=== PATIENT | female | born 1995 | race Caucasian/White ===

== ENCOUNTER 2021-02-28 10:10 | Observation (INO) ==
[2021-02-28 10:32] VITALS: BP 145/83
[2021-02-28] MEDS ORDERED: PENICILLIN G POTASSIUM 5 MILLIONUNT in DEXTROSE 5 % IN WATER 100 ML IV ONE ×2 (10:50)
[2021-02-28] MEDS ORDERED: DEXTROSE 5%-LACTATED RINGERS 1,000 ML IV PRN (10:50)
[2021-02-28 11:11] LABS: Hemoglobin 11.7 gm/dL (12.5-16.0); Mean Cell Volume 87.3 fl (78-100); Mean Corpuscular Hemoglobin 29.2 pg (27-31); Mean Corpuscular Hgb Conc 33.4 g/dl (32-36); Mean Platelet Volume 10.9 fl (8-12.5); Neutrophil # 8.7 K/mm3 (1.3-6.0); Neutrophil % 78.9 % (42-75.0); Platelet Count 202 K/mm3 (150-450); Red Blood Count 4.01 M/mm3 (4.2-5.4); Red Cell Distribution Width 13.3 % (11.5-14.0); White Blood Count 11.1 K/mm3 (4.0-10.5)
[2021-02-28 11:28] LABS: Albumin * 2.4 gm/dl (3.4-5.0); Anion Gap 14.7 mmol/L (6.8-13.8); BUN/Creatinine Ratio 15.5 (9.0-21.6); Bilirubin, Total 0.1 mg/dL (0.0-1.1); Ca. Corrected For Albumin 10.2 mg/dL (8.4-10.2); Calcium * 9.2 mg/dL (7.9-10.9); Carbon Dioxide 22.2 mmol/L (24-32.6); Potassium 3.9 mmol/L (3.4-4.6); Total Protein 6.4 gm/dL (6.2-8.2)
[2021-02-28 11:43] LABS: Random Urine Total Protein 50.5 mg/dL (0-12)
[2021-02-28 12:37] LABS: Random Urine Total Protein Less than 6.0 mg/dL (0-12)
--- NOTE | 2021-02-28 12:37 | HP ---
Chief Complaint - Chief Complaint Date of Service: 02/28/21 Time of Service: 12:09 Chief Complaint: leaking of fluid History of Present Illness: 25 yo at 35w5d presents to L&D complaining of leaking of fluid since around 0445 this am. She also complains of mild irregular contractions since LOF began. She denies N/V/F/C, Covid s/s, vaginal bleeding or d/c prior to LOF, recent coitus, trauma, or decreased FM. This complicated by frequent headaches and now PPROM and elevated BPs (stress vs GHTN vs Preeclampsia) Rh negative Rubella immune GBS pending Medical History (Last Reviewed 02/28/21 @ 12:15 by Wilmer Brennan DO) Anemia (Acute) Onset Date: 01/2021 w/ Influenza vaccine not given Onset Date: ~08/2020 Already received for season. XENIA Irizarry Mumps Onset Date: 2004 Migraine without aura Onset Date: Unknown controlled with magnesium Acne Onset Date: ~06/04/13 Peroneal tendinitis Onset Date: Unknown Left foot Varicella without mention of complication Onset Date: Unknown Surgical History: Surgical History (Last Reviewed 02/28/21 @ 12:15 by Wilmer Brennan DO) [place] teeth removed Onset Date: ~09/2017 Family History: Family History (Last Reviewed 02/28/21 @ 12:15 by Wilmer Brennan DO) Grandfather Brain aneurysm History of open heart surgery Alcohol abuse Mother CHF (congestive heart failure) during Father Alive and well Grandfather COPD (chronic obstructive pulmonary disease) Grandmother Diabetes Social History: (Last Reviewed 02/28/21 @ 12:15 by Wilmer Brennan DO) Social History: adopted: No Marital status: household members: spouse number of children: 0 current occupational status: employed current occupation: [employer] current occupational exposures/hazards: No Highest level of school completed/degree received: Associate degree: academi Sexually Active: Yes Service: No Tobacco: Smoking Status: Never smoker Alcohol: alcohol intake: current alcohol intake frequency: holiday/special occasion details: none since +UPT Substance Use: substance use type: does not use Dietary Habits: caffeine: Yes caffeine comment: 1 daily Type: coffee Exercise: Physical activity type: running frequency: 1-2 times per week Review Of Systems (GEN) - Review of Systems Generalized/Overall Review: Present: No Symptoms Reported EENTM: Present: No Symptoms Reported Respiratory: Present: No Symptoms Reported Cardiac: Present: No Symptoms Reported Abdominal: Present: Other - mild irregular contractions Genitourinary: Present: Other - LOF - clear, started around 0445. Musculoskeletal: Present: No Symptoms Reported Neurological: Present: No Symptoms Reported Skin: Present: No Symptoms Reported Endocrine: Present: No Symptoms Reported Allergies/Adverse Reactions: Allergies Allergy/AdvReac Type Severity Reaction Status Date / Time No Known Allergies Allergy Verified 02/26/21 14:49 Home Medications: HOME MEDICATIONS magnesium oxide,aspartate,citr 250 mg PO DAILY PRN cap 08/21/20 [Last Taken Unknown] prenat.vits,karen,qcr-encp-gdeov 1 tab PO DAILY 08/21/20 [Last Taken Unknown] ferrous sulfate 325 mg (65 mg iron) tablet,delayed release 325 mg PO DAILY #30 tab 01/12/21 [Last Taken Unknown] Exam - Exam Vital Signs: Vital Signs - Last Taken Temp 36.8 C 02/28/21 10:29 Pulse 96 02/28/21 10:29 Resp 18 02/28/21 10:29 BP 145/83 H 02/28/21 10:29 Pulse Ox 98 02/28/21 10:29 Constitutional: Present: Alert, Oriented x3, Cooperative, No distress ENT Exam: Present: hearing grossly normal Neck: Present: non-tender. Absent: thyromegaly Breasts: Present: Exam deferred Respiratory: Present: lungs clear, no respiratory distress Cardiovascular/Chest: Present: normal peripheral pulses, regular rate, rhythm Abdomen: Present: soft, nontender, no rebound tenderness, other - gravid /Rectal: Present: Other - Cervix - 1/80/-1, gross ROM - clear Extremity: Present: no calf tenderness, lower extremity edema - 1+, other - DTR 2/4, no clonus Skin Exam: Present: normal color, warm/dry, no cyanosis Lymphatic: Present: no adenopathy Neurologic: Present: alert, normal mood/affect, oriented x 3 Appearance: Present: appropriate appearance, appropriate insight Eye contact: Present: cooperative, good eye contact Thoughts: Present: normal thought pattern, normal mood /affect Diagnostic Studies: Abnormal Lab Results 02/28/21 02/28/21 02/28/21 Range/Units 10:29 10:30 11:05 WBC 11.1 H (4.0-10.5) K/mm3 RBC 4.01 L (4.2-5.4) M/mm3 Hgb 11.7 L (12.5-16.0) gm/dL Hct 35.0 L (37.0-47.0) % Immature Gran # (Auto) 0.04 H (0.000-0.0310) K/mm3 Neutrophils % 78.9 H (42-75.0) % Lymphocytes % 13.7 L (20-51) % Neutrophils # 8.7 H (1.3-6.0) K/mm3 Carbon Dioxide (24-32.6) mmol/L Anion Gap (6.8-13.8) mmol/L Est GFR (Non-Af Amer) (60-130) mL/min Alkaline Phosphatase (50-170) U/L Albumin (3.4-5.0) gm/dl Ur Random Creatinine 21.6 L (60-200) mg/dL U Random Total Protein 50.5 H (0-12) mg/dL U [place] Prot/Creat Ratio 2338 H (0-199) mg/gm Membranes Rupture Positive H (Negative) 02/28/21 Range/Units 11:05 WBC (4.0-10.5) K/mm3 RBC (4.2-5.4) M/mm3 Hgb (12.5-16.0) gm/dL Hct (37.0-47.0) % Immature Gran # (Auto) (0.000-0.0310) K/mm3 Neutrophils % (42-75.0) % Lymphocytes % (20-51) % Neutrophils # (1.3-6.0) K/mm3 Carbon Dioxide 22.2 L (24-32.6) mmol/L Anion Gap 14.7 H (6.8-13.8) mmol/L Est GFR (Non-Af Amer) 135 H (60-130) mL/min Alkaline Phosphatase 180 H (50-170) U/L Albumin 2.4 L (3.4-5.0) gm/dl Ur Random Creatinine (60-200) mg/dL U Random Total Protein (0-12) mg/dL U [place] Prot/Creat Ratio (0-199) mg/gm Membranes Rupture (Negative) Laboratory Results WBC 11.1 K/mm3 (4.0-10.5) H 02/28/21 11:05 RBC 4.01 M/mm3 (4.2-5.4) L 02/28/21 11:05 Hgb 11.7 gm/dL (12.5-16.0) L 02/28/21 11:05 Hct 35.0 % (37.0-47.0) L 02/28/21 11:05 MCV 87.3 fl (78-100) 02/28/21 11:05 MCH 29.2 pg (27-31) 02/28/21 11:05 MCHC 33.4 g/dl (32-36) 02/28/21 11:05 RDW 13.3 % (11.5-14.0) 02/28/21 11:05 Plt Count 202 K/mm3 (150-450) 02/28/21 11:05 MPV 10.9 fl (8-12.5) 02/28/21 11:05 Immature Gran % (Auto) 0.40 % (0.001-0.429) 02/28/21 11:05 Immature Gran # (Auto) 0.04 K/mm3 (0.000-0.0310) H 02/28/21 11:05 Neutrophils % 78.9 % (42-75.0) H 02/28/21 11:05 Lymphocytes % 13.7 % (20-51) L 02/28/21 11:05 Monocytes % 6.2 % (0.0-9) 02/28/21 11:05 Eosinophils % 0.6 % (0.0-3.0) 02/28/21 11:05 Basophils % 0.2 % (0.0-1.0) 02/28/21 11:05 Nucleated RBC % 0.0 k/mm3 (0-1) 02/28/21 11:05 Neutrophils # 8.7 K/mm3 (1.3-6.0) H 02/28/21 11:05 Lymphocytes # 1.51 k/mm3 (1.5-3.5) 02/28/21 11:05 Monocytes # 0.7 k/mm3 (0.0-1.0) 02/28/21 11:05 Eosinophils # 0.1 k/mm3 (0.0-0.7) 02/28/21 11:05 Absolute Basophils 0.0 k/mm3 (0.0-0.1) 02/28/21 11:05 Sodium 139 mmol/L (132-142) 02/28/21 11:05 Plasma Sodium 139 mmol/L (130-142) 02/28/21 11:05 Potassium 3.9 mmol/L (3.4-4.6) 02/28/21 11:05 Chloride 106 mmol/L (97-106) 02/28/21 11:05 Carbon Dioxide 22.2 mmol/L (24-32.6) L 02/28/21 11:05 Anion Gap 14.7 mmol/L (6.8-13.8) H 02/28/21 11:05 BUN 9 mg/dL (3-23) 02/28/21 11:05 Creatinine 0.58 mg/dL (0.4-1.4) 02/28/21 11:05 Est GFR (Non-Af Amer) 135 mL/min (60-130) H 02/28/21 11:05 BUN/Creatinine Ratio 15.5 (9.0-21.6) 02/28/21 11:05 Random Glucose 94 mg/dL (70-110) 02/28/21 11:05 Calcium 9.2 mg/dL (7.9-10.9) 02/28/21 11:05 Calcium Adj for Albumin 10.2 mg/dL (8.4-10.2) 02/28/21 11:05 Total Bilirubin 0.1 mg/dL (0.0-1.1) 02/28/21 11:05 AST 30 U/L (0-48) 02/28/21 11:05 ALT 28 U/L (19-67) 02/28/21 11:05 Alkaline Phosphatase 180 U/L (50-170) H 02/28/21 11:05 Total Protein 6.4 gm/dL (6.2-8.2) 02/28/21 11:05 Albumin 2.4 gm/dl (3.4-5.0) L 02/28/21 11:05 Ur Random Creatinine 21.6 mg/dL (60-200) L 02/28/21 10:30 U Random Total Protein 50.5 mg/dL (0-12) H 02/28/21 10:30 U [place] Prot/Creat Ratio 2338 mg/gm (0-199) H 02/28/21 10:30 Membranes Rupture Positive (Negative) H 02/28/21 10:29 Urine was a voided specimen contaminated with amniotic fluid. St cath specimen for repeat Pr/Cr ratio was 187. Bedside ultrasound reveals fetus in cephalic presentation, low BABITA consistent with PPROM. Assessment/Plan - Assessment/Plan (1) premature rupture of membranes in third trimester Assessment: Admit for PPROM. Start on IV PCN per GBS protocol. R/b/a of transfer to [facility] discussed with patient. Transfer of care accepted and discussed with Dr. Víctor Montoya. Problem: Acute Qualifiers: PROM onset of labor timing: unspecified duration between rupture of membranes and onset of labor Qualified Code(s): O42.913 - premature rupture of membranes, unspecified as to length of time between rupture and onset of labor, third trimester (2) Elevated blood pressure complicating in third trimester, antepartum Problem: Acute (3) Frequent headaches Problem: Chronic Non Stress Test - Status NST: 02/28/21 Weeks Gestation: 35w5d Reason for NST: gestational hypertension, other - PPROM, threatened labor Monitor Mode: External Acceleration: Present Decelerations: None Variability: Moderate 6-25 bpm Baseline Heart Rate: 140 Activity: reactive Reactive: 15 by 15 - Assessment NST Assessment: gestational hypertension, other - PPROM, threatened labor - Plan NST Plan: Other - Transfer to [facility]
--- NOTE | 2021-02-28 13:20 | DS ---
OB Discharge Summary (1) premature rupture of membranes in third trimester Status: Acute Qualifiers: PROM onset of labor timing: unspecified duration between rupture of membranes and onset of labor Qualified Code(s): O42.913 - premature rupture of membranes, unspecified as to length of time between rupture and onset of labor, third trimester (2) Elevated blood pressure complicating in third trimester, antepartum Status: Acute (3) Frequent headaches Status: Chronic :: 1 Para:: 0 Gestational weeks:: 35 Gestational days:: 5 Intrapartum Procedures: Undelivered Discharge Diagnosis: Gestational Hypertension, Premature Labor, PROM, Rubella Immune - Discharge Information Date of Discharge: 02/28/21 Hospital Course: 25-year-old 1 para 0 at 35 weeks 5 days presents to labor and delivery with spontaneous rupture of membranes. Patient was evaluated and started on IV penicillin for GBS prophylaxis due to unknown culture results. Patient was transferred to [facility] for management of labor. Discharge Location: [facility] Disposition: Short Term Hospital Inpatient Condition: Stable Activity on Discharge:: Pelvic Rest Discharge Diet: Clear Liquids Complete Home Medications List: Complete Home Medication List: magnesium oxide,aspartate,citr 250 mg PO DAILY PRN cap 08/21/20 prenat.vits,karen,tix-piow-qodes 1 tab PO DAILY 08/21/20 ferrous sulfate 325 mg (65 mg iron) tablet,delayed release 325 mg PO DAILY #30 tab 01/12/21 - Plan Discharge to:: Other - [facility] Follow up in office in:: Other - 3-4 wks PP
[2021-02-28] MEDS ORDERED: PENICILLIN G POTASSIUM 2.5 MILLIONUNT in DEXTROSE 5 % IN WATER 100 ML IV SCH ×2 (15:00)
== END 2021-02-28 13:05 | disposition short-term general hospital (02) ==
LOC: OB 10:10 → OBCLINIC 10:10
PROVIDERS: ADMIT Obstetrics & Gynecology; ATTEND Obstetrics & Gynecology
DX: Z3A.35 35 weeks gestation of pregnancy; O16.3 Unspecified maternal hypertension, third trimester; O42.913 Preterm premature rupture of membranes, unspecified as to length of time between rupture and onset of labor, third trimester

== ENCOUNTER 2021-03-06 17:53 | Inpatient (IN) ==
[2021-03-06 18:14] LABS: Hematocrit 36.9 % (37.0-47.0); Hemoglobin 12.2 gm/dL (12.5-16.0); Mean Cell Volume 87.6 fl (78-100); Mean Corpuscular Hgb Conc 33.1 g/dl (32-36); Mean Platelet Volume 10.5 fl (8-12.5); Neutrophil # 4.7 K/mm3 (1.3-6.0); Neutrophil % 60.6 % (42-75.0); Platelet Count 214 K/mm3 (150-450); Red Blood Count 4.21 M/mm3 (4.2-5.4); Red Cell Distribution Width 13.2 % (11.5-14.0); White Blood Count 7.7 K/mm3 (4.0-10.5)
[2021-03-06 18:26] LABS: Albumin * 2.6 gm/dl (3.4-5.0); Anion Gap 12.3 mmol/L (6.8-13.8); BUN/Creatinine Ratio 21.2 (9.0-21.6); Bilirubin, Total 0.1 mg/dL (0.0-1.1); Ca. Corrected For Albumin 9.7 mg/dL (8.4-10.2); Calcium * 8.9 mg/dL (7.9-10.9); Carbon Dioxide 26.8 mmol/L (24-32.6); Potassium 4.1 mmol/L (3.4-4.6); Total Protein 6.5 gm/dL (6.2-8.2)
[2021-03-06] MEDS ORDERED: ACETAMINOPHEN 325 MG TABLET PO ONE (18:41)
--- NOTE | 2021-03-06 18:45 | ERNOTE ---
Medical Problem HPI - General Chief Complaint: Genitourinary Problem Time Seen by Provider: 03/06/21 18:30 Source: patient Exam Limitations: no limitations - Immun/Allergies/Home Medications Immunizations: IMMUNIZATION HX Immunizations Up to Date Yes History of Influenza Vaccine Yes Hx Pneumococcal Vaccination No Allergies/Adverse Reactions: Allergies No Known Allergies Allergy (Verified 03/06/21 18:13) Home Medications: HOME MEDICATIONS magnesium oxide,aspartate,citr 250 mg PO DAILY PRN cap 08/21/20 [Last Taken Unknown] prenat.vits,karen,rmf-rlnx-lapwp 1 tab PO DAILY 08/21/20 [Last Taken Unknown] ferrous sulfate 325 mg (65 mg iron) tablet,delayed release 325 mg PO DAILY #30 tab 01/12/21 [Last Taken Unknown] - History of Present History Narrative: Patient is coming to the ER for concern about preeclampsia. She had a spontaneous vaginal delivery on March 01 at 36 6/7week. She states that initially her blood pressure postdelivery were somewhat elevated but she was d ischarged home with satisfactory blood pressures 3 days ago. She states that she has had increased swelling in the hands and legs since her delivery worse the last couple of days. Her child is currently admitted for hyperbilirubinemia and as she was not feeling well she had the nurses take her blood pressure and it was found to be 160/100 so she was sent to the ER for evaluation of preeclampsia. She has a mild headache which she rates at 4/10. She has a mild backache, initially thought it was due to sleeping on the hospital cot, today she has some pressure-like feeling in the chest as well. It hurts to take a deep breath Review of Systems - Review of Systems Constitutional: Absent: recent illness, fever ENT: Present: no symptoms reported Respiratory: Absent: shortness of breath Cardiology: Present: chest pain Gastrointestinal/Abdominal: Absent: abdominal pain Musculoskeletal: Present: back pain Neurological: Present: See HPI, headache Medical History (Last Reviewed 03/06/21 @ 18:43 by Kami Larson MD) Anemia (Acute) Onset Date: 01/2021 w/ Influenza vaccine not given Onset Date: ~08/2020 Already received for season. XENIA Irizarry Mumps Onset Date: 2004 Migraine without aura Onset Date: Unknown controlled with magnesium Acne Onset Date: ~06/04/13 Peroneal tendinitis Onset Date: Unknown Left foot Varicella without mention of complication Onset Date: Unknown Surgical History: Surgical History (Last Reviewed 03/06/21 @ 18:43 by Kami Larson MD) [place] teeth removed Onset Date: ~09/2017 Family History: Family History (Last Reviewed 03/06/21 @ 18:14 by Court Flores, REGGIE) Grandfather Brain aneurysm History of open heart surgery Alcohol abuse Mother CHF (congestive heart failure) during Father Alive and well Grandfather COPD (chronic obstructive pulmonary disease) Grandmother Diabetes Social History: (Last Reviewed 03/06/21 @ 18:14 by Court Flores, REGGIE) Social History: adopted: No Marital status: household members: spouse number of children: 0 current occupational status: employed current occupation: [employer] current occupational exposures/hazards: No Highest level of school completed/degree received: Associate degree: danny Sexually Active: Yes Service: No Tobacco: Smoking Status: Never smoker Alcohol: alcohol intake: current alcohol intake frequency: holiday/special occasion details: none since +UPT Substance Use: substance use type: does not use Dietary Habits: caffeine: Yes caffeine comment: 1 daily Type: coffee Exercise: Physical activity type: running frequency: 1-2 times per week Physical Exam - Physical Exam General Appearance: Present: wd/wn, alert, no apparent distress, obese Head Exam: Present: normal inspection Eye Exam: Normal inspection: bilateral Respiratory: Present: no respiratory distress, normal breath sounds, no accessory muscle use, chest nontender, lungs clear Cardiovascular/Chest: Present: regular rate, rhythm, no murmur Extremity Exam: Present: pedal edema Neurological Exam: Present: alert, oriented, normal mood/affect Skin Exam: Present: normal color, warm/dry Progress - Results and Orders Patient's Lab Results:: I have reviewed the patient's lab results. - Vital Signs Patient's Vital Signs:: I have reviewed the patient's vital signs. Vital Signs: Vital Signs 03/06/21 17:59 Temperature 36.5 C Pulse Rate 58 L Respiratory Rate 15 Blood Pressure 178/101 H O2 Sat by Pulse Oximetry 99 - EKG EKG #1 EKG: NSR - sinusbradycardia, no ST T wave changes EKG read: Interp. 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
[2021-03-06 18:51] LABS: Urine Bilirubin Negative (NEGATIVE); Urine Blood Negative /ul (NEGATIVE); Urine Ketone Negative (NEGATIVE); Urine Nitrite Negative (NEGATIVE); Urine Protein Negative (NEGATIVE); Urine Specific Gravity <=1.005 SP.GR. (1.005-1.010); Urine Urobilinogen Normal (NORMAL)
[2021-03-06 19:00] LABS: Random Urine Total Protein Less than 6.0 mg/dL (0-12)
[2021-03-06 19:06] LABS: Urine Appearance Clear (CLEAR); Urine Color Pale Yellow; Urine RBC TRACE /hpf (0-5); Urine WBC TRACE /hpf (0-5)
[2021-03-06] MEDS ORDERED: diphenhydrAMINE HCL 50 MG/ML VIAL IV ONE (19:06)
[2021-03-06] MEDS ORDERED: METOCLOPRAMIDE HCL 5 MG/ML VIAL IV ONE (19:06)
[2021-03-06 19:07] LABS: Urine Bacteria TRACE
[2021-03-06] MEDS ORDERED: LABETALOL HCL 5 MG/ML VIAL IV ONE (20:13)
[2021-03-06] MEDS ORDERED: MAGNESIUM SULFATE IN WATER 50 ML, MAGNESIUM SULFATE IN WATER 50 ML IV ONE ×2 (21:29)
[2021-03-06] MEDS ORDERED: CALCIUM GLUCONATE 4.65 MEQ/10 ML VIAL IV PRN (21:29)
[2021-03-06] MEDS ORDERED: MAGNESIUM SULFATE IN WATER 1,000 ML IV SCH (21:30)
[2021-03-06] MEDS ORDERED: MAGNESIUM SULFATE IN WATER IV ONE (21:54)
[2021-03-06] MEDS: DEXTROSE 5%-LACTATED RINGERS 1,000 ML IV PRN (22:46)
--- NOTE | 2021-03-06 23:23 | HP ---
Chief Complaint - Chief Complaint Date of Service: 03/06/21 Time of Service: 23:08 Chief Complaint: MARIE and not feeling good History of Present Illness: 25 yo 5 days out from of 35+wk fetus at [facility] c/o of MARIE and not feeling well. Patient had mildly elevated BPs after delivery at [facility] but no symptoms till today. In addition to MARIE, she has increased swelling, chest discomfort with deep breathing, and generalized malaise. She was evaluated in ER and found to be COVID positive and have preeclampsia with severe features. Medical History (Last Reviewed 03/06/21 @ 23:13 by Wilmer Brennan DO) Anemia (Acute) Onset Date: 01/2021 w/ Influenza vaccine not given Onset Date: ~08/2020 Already received for season. XENIA Irizarry Mumps Onset Date: 2004 Migraine without aura Onset Date: Unknown controlled with magnesium Acne Onset Date: ~06/04/13 Peroneal tendinitis Onset Date: Unknown Left foot Varicella without mention of complication Onset Date: Unknown Surgical History: Surgical History (Last Reviewed 03/06/21 @ 23:13 by Wilmer Brennan DO) [place] teeth removed Onset Date: ~09/2017 Family History: Family History (Last Reviewed 03/06/21 @ 23:13 by Wilmer Brennan DO) Grandfather Brain aneurysm History of open heart surgery Alcohol abuse Mother CHF (congestive heart failure) during Father Alive and well Grandfather COPD (chronic obstructive pulmonary disease) Grandmother Diabetes Social History: (Last Reviewed 03/06/21 @ 23:13 by Wilmer Brennan DO) Social History: adopted: No Marital status: household members: spouse number of children: 0 current occupational status: employed current occupation: [employer] current occupational exposures/hazards: No Highest level of school completed/degree received: Associate degree: academi Sexually Active: Yes Service: No Tobacco: Smoking Status: Never smoker Alcohol: alcohol intake: current alcohol intake frequency: holiday/special occasion details: none since +UPT Substance Use: substance use type: does not use Dietary Habits: caffeine: Yes caffeine comment: 1 daily Type: coffee Exercise: Physical activity type: running frequency: 1-2 times per week Review Of Systems (GEN) - Review of Systems Generalized/Overall Review: Present: Malaise EENTM: Present: No Symptoms Reported Respiratory: Present: No Symptoms Reported Cardiac: Present: Chest Pain - when up and deep breathing, non lying down Abdominal: Present: No Symptoms Reported Genitourinary: Present: No Symptoms Reported Musculoskeletal: Present: No Symptoms Reported Neurological: Present: Headache Endocrine: Present: Other - Feels hot Immunizations: IMMUNIZATION HX Immunizations Up to Date Yes History of Influenza Vaccine Yes Hx Pneumococcal Vaccination No Allergies/Adverse Reactions: Allergies Allergy/AdvReac Type Severity Reaction Status Date / Time No Known Allergies Allergy Verified 03/06/21 18:13 Home Medications: HOME MEDICATIONS magnesium oxide,aspartate,citr 250 mg PO DAILY PRN cap 08/21/20 [Last Taken Unknown] prenat.vits,karen,[id number] 1 tab PO DAILY 08/21/20 [Last Taken Unknown] ferrous sulfate 325 mg (65 mg iron) tablet,delayed release 325 mg PO DAILY #30 tab 01/12/21 [Last Taken Unknown] Exam - Exam Vital Signs: Vital Signs - Last Taken Temp 36.8 C 03/06/21 22:52 Pulse 75 03/06/21 22:52 Resp 18 03/06/21 22:52 BP 143/83 H 03/06/21 22:52 Pulse Ox 100 03/06/21 22:52 Constitutional: Present: Alert, Oriented x3, Cooperative, No distress, Other - edematous ENT Exam: Present: hearing grossly normal Breasts: Present: Exam deferred Respiratory: Present: lungs clear, no respiratory distress Cardiovascular/Chest: Present: normal peripheral pulses, regular rate, rhythm Abdomen: Present: soft, nontender, no rebound tenderness /Rectal: Present: Other - uterus enlarged, NT, firm Extremity: Present: non-tender, no calf tenderness, lower extremity edema - 1+, other - DTR 3/4, no clonus Skin Exam: Present: normal color, warm/dry, no cyanosis Neurologic: Present: alert, normal mood/affect, oriented x 3 Appearance: Present: appropriate appearance, appropriate insight Eye contact: Present: cooperative, good eye contact Thoughts: Present: normal thought pattern, normal mood /affect Diagnostic Studies: Abnormal Lab Results 03/06/21 03/06/21 03/06/21 Range/Units 18:09 18:09 18:20 Hgb 12.2 L (12.5-16.0) gm/dL Hct 36.9 L (37.0-47.0) % Monocytes % 11.5 H (0.0-9) % Albumin 2.6 L (3.4-5.0) gm/dl Urine WBC (0-5) /hpf Ur Random Creatinine 11.0 L (60-200) mg/dL U [place] Prot/Creat Ratio 545 H (0-199) mg/gm SARS-CoV-2 (PCR) (NotDetected) 03/06/21 03/06/21 Range/Units 18:20 20:17 Hgb (12.5-16.0) gm/dL Hct (37.0-47.0) % Monocytes % (0.0-9) % Albumin (3.4-5.0) gm/dl Urine WBC Trace H (0-5) /hpf Ur Random Creatinine (60-200) mg/dL U [place] Prot/Creat Ratio (0-199) mg/gm SARS-CoV-2 (PCR) Detected H (NotDetected) Laboratory Results WBC 7.7 K/mm3 (4.0-10.5) 03/06/21 18:09 RBC 4.21 M/mm3 (4.2-5.4) 03/06/21 18:09 Hgb 12.2 gm/dL (12.5-16.0) L 03/06/21 18:09 Hct 36.9 % (37.0-47.0) L 03/06/21 18:09 MCV 87.6 fl (78-100) 03/06/21 18:09 MCH 29.0 pg (27-31) 03/06/21 18:09 MCHC 33.1 g/dl (32-36) 03/06/21 18:09 RDW 13.2 % (11.5-14.0) 03/06/21 18:09 Plt Count 214 K/mm3 (150-450) 03/06/21 18:09 MPV 10.5 fl (8-12.5) 03/06/21 18:09 Immature Gran % (Auto) 0.40 % (0.001-0.429) 03/06/21 18:09 Immature Gran # (Auto) 0.03 K/mm3 (0.000-0.0310) 03/06/21 18:09 Neutrophils % 60.6 % (42-75.0) 03/06/21 18:09 Lymphocytes % 24.8 % (20-51) 03/06/21 18:09 Monocytes % 11.5 % (0.0-9) H 03/06/21 18:09 Eosinophils % 2.3 % (0.0-3.0) 03/06/21 18:09 Basophils % 0.4 % (0.0-1.0) 03/06/21 18:09 Nucleated RBC % 0.0 k/mm3 (0-1) 03/06/21 18:09 Neutrophils # 4.7 K/mm3 (1.3-6.0) 03/06/21 18:09 Lymphocytes # 1.90 k/mm3 (1.5-3.5) 03/06/21 18:09 Monocytes # 0.9 k/mm3 (0.0-1.0) 03/06/21 18:09 Eosinophils # 0.2 k/mm3 (0.0-0.7) 03/06/21 18:09 Absolute Basophils 0.0 k/mm3 (0.0-0.1) 03/06/21 18:09 Sodium 140 mmol/L (132-142) 03/06/21 18:09 Plasma Sodium 140 mmol/L (130-142) 03/06/21 18:09 Potassium 4.1 mmol/L (3.4-4.6) 03/06/21 18:09 Chloride 105 mmol/L (97-106) 03/06/21 18:09 Carbon Dioxide 26.8 mmol/L (24-32.6) 03/06/21 18:09 Anion Gap 12.3 mmol/L (6.8-13.8) 03/06/21 18:09 BUN 18 mg/dL (3-23) D 03/06/21 18:09 Creatinine 0.85 mg/dL (0.4-1.4) 03/06/21 18:09 Est GFR (Non-Af Amer) 87 mL/min (60-130) D 03/06/21 18:09 BUN/Creatinine Ratio 21.2 (9.0-21.6) 03/06/21 18:09 Random Glucose 85 mg/dL (70-110) 03/06/21 18:09 Calcium 8.9 mg/dL (7.9-10.9) 03/06/21 18:09 Calcium Adj for Albumin 9.7 mg/dL (8.4-10.2) 03/06/21 18:09 Total Bilirubin 0.1 mg/dL (0.0-1.1) 03/06/21 18:09 AST 34 U/L (0-48) 03/06/21 18:09 ALT 66 U/L (19-67) 03/06/21 18:09 Alkaline Phosphatase 141 U/L (50-170) 03/06/21 18:09 Troponin I Less than 0.017 ng/mL (0.00-0.10) 03/06/21 18:09 Total Protein 6.5 gm/dL (6.2-8.2) 03/06/21 18:09 Albumin 2.6 gm/dl (3.4-5.0) L 03/06/21 18:09 Urine Color Pale yellow 03/06/21 18:20 Urine Appearance Clear (CLEAR) 03/06/21 18:20 Urine pH 6.0 pH (5.0-7.0) 03/06/21 18:20 Ur Specific [place] <=1.005 SP.GR. (1.005-1.010) 03/06/21 18:20 Urine Protein Negative mg/dL (NEGATIVE) 03/06/21 18:20 Urine Glucose (UA) Negative mg/dL (NEGATIVE) 03/06/21 18:20 Urine Ketones Negative mg/dL (NEGATIVE) 03/06/21 18:20 Urine Blood Negative /ul (NEGATIVE) 03/06/21 18:20 Urine Nitrate Negative (NEGATIVE) 03/06/21 18:20 Urine Bilirubin Negative mg/dl (NEGATIVE) 03/06/21 18:20 Urine Urobilinogen Normal EU/dl (NORMAL) 03/06/21 18:20 Ur Leukocyte Esterase Negative /ul (NEGATIVE) 03/06/21 18:20 Urine RBC Trace /hpf (0-5) 03/06/21 18:20 Urine WBC Trace /hpf (0-5) H 03/06/21 18:20 Ur Epithelial Cells Trace /hpf (0-5) 03/06/21 18:20 Urine Bacteria Trace (NONE) 03/06/21 18:20 Urine Culture Comments No culture indicated 03/06/21 18:20 Ur Random Creatinine 11.0 mg/dL (60-200) L 03/06/21 18:20 U Random Total Protein Less than 6.0 mg/dL (0-12) 03/06/21 18:20 U [place] Prot/Creat Ratio 545 mg/gm (0-199) H 03/06/21 18:20 SARS-CoV-2 (PCR) Detected (NotDetected) H 03/06/21 20:17 Assessment/Plan - Assessment/Plan (1) Preeclampsia Assessment: Admit for 24h of magnesium sulfate IV 2g/h. Seizure/COVID precautions. Labetolol 100mg BID. Monitor I/Os and BPs. Problem: Acute Qualifiers: Trimester: unspecified trimester Qualified Code(s): O14.90 - Unspecified pre-eclampsia, unspecified trimester (2) COVID-19 Problem: Acute
[2021-03-07] MEDS: ACETAMINOPHEN 325 MG TABLET PO PRN ×2 (05:51→13:26)
[2021-03-07] MEDS ORDERED: LABETALOL HCL 100 MG TABLET PO SCH (09:00)
[2021-03-07] MEDS: DEXTROSE 5%-LACTATED RINGERS 1,000 ML IV PRN (12:17)
[2021-03-07] MEDS ORDERED: LABETALOL HCL 5 MG/ML VIAL IV STA (16:57)
[2021-03-07] MEDS ORDERED: NAPROXEN 500 MG TABLET PO PRN (17:22)
--- NOTE | 2021-03-07 17:23 | PN ---
Subjective - Date and Time Seen Date: 03/07/21 Time: 17:02 Objective - Review of Systems Generalized/Overall Review: Reports: Malaise EENTM: Reports: No Symptoms Reported Respiratory: Reports: No Symptoms Reported Cardiac: Reports: No Symptoms Reported Abdominal: Reports: No Symptoms Reported Genitourinary Symptoms: Reports: No Symptoms Reported Musculoskeletal Complaints: Reports: No Symptoms Reported Neurological: Reports: Headache - behind eyes and back of skull Skin: Reports: No Symptoms Reported Endocrine: Reports: No Symptoms Reported - Vitals Vitals: Last Vital Signs Temp 36.6 C 03/07/21 14:00 Pulse 67 03/07/21 15:00 Resp 18 03/07/21 15:00 BP 150/87 H 03/07/21 15:00 Pulse Ox 100 03/07/21 15:00 last 2 BPs in severe range 170s/100s. - Abnormal Lab Findings Abnormal Lab Findings: Abnormal Lab Results 03/06/21 03/06/21 03/06/21 Range/Units 18:09 18:09 18:20 Hgb 12.2 L (12.5-16.0) gm/dL Hct 36.9 L (37.0-47.0) % Monocytes % 11.5 H (0.0-9) % Magnesium (1.2-2.8) mg/dL Albumin 2.6 L (3.4-5.0) gm/dl Urine WBC (0-5) /hpf Ur Random Creatinine 11.0 L (60-200) mg/dL U [place] Prot/Creat Ratio 545 H (0-199) mg/gm SARS-CoV-2 (PCR) (NotDetected) 03/06/21 03/06/21 03/07/21 Range/Units 18:20 20:17 16:00 Hgb (12.5-16.0) gm/dL Hct (37.0-47.0) % Monocytes % (0.0-9) % Magnesium 5.6 H (1.2-2.8) mg/dL Albumin (3.4-5.0) gm/dl Urine WBC Trace H (0-5) /hpf Ur Random Creatinine (60-200) mg/dL U [place] Prot/Creat Ratio (0-199) mg/gm SARS-CoV-2 (PCR) Detected H (NotDetected) - Exam Constitutional: Present: Alert, Oriented x3, Cooperative, No distress ENT Exam: Present: hearing grossly normal Breasts: Present: Exam deferred Respiratory: Present: lungs clear, no respiratory distress Cardiovascular/Chest: Present: regular rate, rhythm, edema - improving Abdomen: Present: soft, nontender, no rebound tenderness, other /Rectal: Present: Other - uterus at U-3 Extremity: Present: no calf tenderness, lower extremity edema Skin Exam: Present: normal color, warm/dry, no cyanosis Cauti Physician Documentation - Urinary Catheter Management Urethral (Farooq) Urethral Indwelling: Yes Reason for Continuing Indwelling Catheter: Measure accurate output Date of Insertion: 03/06/21 Time of Insertion: 23:47 Assessment/Plan - Problems/Diagnosis (1) Preeclampsia Problem: Acute Qualifiers: Trimester: unspecified trimester Qualified Code(s): O14.90 - Unspecified pre-eclampsia, unspecified trimester Narrative: Stable till past 30 min, increase in BPs to severe range. Will give labetalol 10mg IV x 1 and increase PO to 200mg BID. Plan to d/c magnesium and seizure precautions after 24 hours. Plan to discharge in am if continues to improve. (2) COVID-19 Problem: Acute (3) Frequent headaches Problem: Chronic Narrative: COVID vs preeclampsia vs her usual recurrent HAs. Patient declines MARIE protocol. Will try Naprosyn and Mountain Dew.
[2021-03-07] MEDS: LABETALOL HCL 200 MG TABLET PO SCH (20:57)
[2021-03-08] MEDS: LABETALOL HCL 200 MG TABLET PO SCH (08:14)
--- NOTE | 2021-03-08 11:54 | PN ---
Subjective - Date and Time Seen Date: 03/08/21 Time: 08:50 Subjective Narrative: Patient complains of mild headache less than 1 out of 10. Denies chest pain, shortness of breath, fatigue, fever, or chills. Objective - Review of Systems Generalized/Overall Review: Reports: No Symptoms Reported EENTM: Reports: No Symptoms Reported Respiratory: Reports: No Symptoms Reported Cardiac: Reports: No Symptoms Reported Abdominal: Reports: No Symptoms Reported Genitourinary Symptoms: Reports: No Symptoms Reported Musculoskeletal Complaints: Reports: No Symptoms Reported Neurological: Reports: Headache - 11/12 frontal Skin: Reports: No Symptoms Reported Endocrine: Reports: No Symptoms Reported - Vitals Vitals: Last Vital Signs Temp 36.5 C 03/08/21 08:17 Pulse 72 03/08/21 10:49 Resp 16 03/08/21 10:49 BP 137/72 03/08/21 10:49 Pulse Ox 100 03/08/21 10:49 - Abnormal Lab Findings Abnormal Lab Findings: Abnormal Lab Results 03/07/21 Range/Units 16:00 Magnesium 5.6 H (1.2-2.8) mg/dL - Exam Constitutional: Present: Alert, Oriented x3, Cooperative ENT Exam: Present: hearing grossly normal Respiratory: Present: no respiratory distress Cardiovascular/Chest: Present: regular rate, rhythm, edema - minimal Abdomen: Present: soft, nontender, no rebound tenderness /Rectal: Present: Other - Uterus - assisted between pubic bone and umbilicus Extremity: Present: non-tender, no calf tenderness Skin Exam: Present: normal color, warm/dry, no cyanosis Neurologic: Present: alert, normal mood/affect, oriented x 3 Appearance: Present: appropriate appearance, appropriate insight Eye contact: Present: cooperative, good eye contact Thoughts: Present: normal thought pattern, normal mood /affect Cauti Physician Documentation - Urinary Catheter Management Urethral (Farooq) Urethral Indwelling: Yes Date of Insertion: 03/06/21 Time of Insertion: 23:47 Assessment/Plan Plan Narrative: We will discharge home today on labetalol 200 mg p.o. twice daily with instructions to call for return of severe features. Continue taking blood pressure at home 2-3 times per day and call for severe range blood pressures. Patient to follow-up at the end of her quarantine. In 10 days for repeat blood pressure check in the office and to discuss control options. - Problems/Diagnosis (1) Preeclampsia Problem: Acute Qualifiers: Trimester: unspecified trimester Qualified Code(s): O14.90 - Unspecified pre-eclampsia, unspecified trimester (2) COVID-19 Problem: Acute (3) Frequent headaches Problem: Chronic
--- NOTE | 2021-03-08 12:06 | DS ---
(1) Severe pre-eclampsia, Problem: Acute (2) COVID-19 Problem: Acute (3) Frequent headaches Problem: Chronic Date of Discharge:: 03/08/21 Hospital Course: 25-year-old 1 para 1 status post vaginal delivery at [facility] for premature rupture membranes here at our hospital due to readmission of her for jaundice. While attending to her baby here she developed a headache and states she just did not feel right. Nurse attending to her baby took her blood pressure which was in severe range. She was sent to the emergency room for further evaluation and noted to have preeclampsia and COVID-19. She was admitted for 24 hours of IV magnesium and started on labetalol both IV and orally to control her severe range blood pressures. After about 18 hours of being on magnesium 2 g intravenously, she had absent patellar reflexes. Magnesium was stopped and reflexes returned within 1-1/2 hours. Magnesium level drawn at that time was 5.6. The magnesium was restarted at 1 g/h until she completed her 24-hour course of medication. Blood pressures are maintained in the mild range on labetalol 200 mg p.o. twice daily. She will continue with this dose upon discharge from the hospital. She is instructed to take her blood pressure 2-3 times a day and call for severe range blood pressures. Follow-up appointment is made 10 days from now when she has completed her quarantine for COVID-19. Procedures Performed: see notes below - IV labetalol, seizure precautions, reverse air flow isolation room, cardiac monitoring Results and Findings: Lab Pending Results 03/06/21 18:09: WBC 7.7, RBC 4.21, Hgb 12.2 L, Hct 36.9 L, MCV 87.6, MCH 29.0, MCHC 33.1, RDW 13.2, Plt Count 214, MPV 10.5, Immature Gran % (Auto) 0.40, Immature Gran # (Auto) 0.03, Neutrophils % 60.6, Lymphocytes % 24.8, Monocytes % 11.5 H, Eosinophils % 2.3, Basophils % 0.4, Nucleated RBC % 0.0, Neutrophils # 4.7, Lymphocytes # 1.90, Monocytes # 0.9, Eosinophils # 0.2, Absolute Basophils 0.0 03/06/21 18:09: Sodium 140, Plasma Sodium 140, Potassium 4.1, Chloride 105, Carbon Dioxide 26.8, Anion Gap 12.3, BUN 18 D, Creatinine 0.85, Est GFR (Non-Af Amer) 87 D, BUN/Creatinine Ratio 21.2, Random Glucose 85, Calcium 8.9, Calcium Adj for Albumin 9.7, Total Bilirubin 0.1, AST 34, ALT 66, Alkaline Phosphatase 141, Total Protein 6.5, Albumin 2.6 L 03/06/21 18:09: Troponin I Less than 0.017 03/06/21 18:20: Ur Random Creatinine 11.0 L, U Random Total Protein Less than 6.0, U [place] Prot/Creat Ratio 545 H 03/06/21 18:20: Urine Color Pale yellow, Urine Appearance Clear, Urine pH 6.0, Ur Specific [place] <=1.005, Urine Protein Negative, Urine Glucose (UA) Negative, Urine Ketones Negative, Urine Blood Negative, Urine Nitrate Negative, Urine Bilirubin Negative, Urine Urobilinogen Normal, Ur Leukocyte Esterase Negative, Urine RBC Trace, Urine WBC Trace H, Ur Epithelial Cells Trace, Urine Bacteria Trace, Urine Culture Comments No culture indicated 03/06/21 20:17: SARS-CoV-2 (PCR) Detected H 03/07/21 16:00: Magnesium 5.6 H Discharge Location: Home Disposition: Home self-care Condition: Stable Face to Face Encounter completed per [facility] Guidelines: Yes Discharge Activity: Activity as tolerated Discharge Diet: General/regular food Problem Oriented Discharge Instructions to Patient/Family: Preeclampsia and Eclampsia, Hypertension During , [id number] Additional Patient Instructions (free text): I reached out to the Health Department. You will need to be in quarantine for 10 days after the positive COVID-19 test. So you will be out of quarantine on March 17. For Héctor, he is exposed until your lst day of quarantine. His 1st day will be March 17 and last day March 27. March 28 is when he would be out of quarantine. Unless he gets COVID tested. If he gets tested during your quarantine time, (and is not symptomatic) and it is negative he would be able to be out of isolation on March 17 also. For visitors, they do not recommend that people fully vaccinated visit, due to being known positive. It can still cause exposure. Your follow up visit is March 20 at 2:[address] Brennan. Please take your blood pressure 2 times a day, once before your blood pressure and then middle of the day. Weight yourself daily, if you have a sudden increase in weight of 5-10 pounds over night, call doctor. If you start having headaches that are not relieved with Tylenol, right upper quadrant pain and visual disturbances let dr known. Bottle feed Melony every 3 to 4 hours, increase her feeds slowly. Burping well after feeds. Please don't hesitate to call with any questions or concerns. If need to come to be seen with in your quarantine time please call ahead and let them know. Melony already has an appointment booked for March 19 at 1:15 PM, we will keep that appointment. [facility] - [phone], [facility] - [phone], [phone] Prescriptions (Any new or edited meds): Labetalol HCl [Trandate] 200 mg PO BID #60 tab Transmission Status: Pending to [facility] #[id number] Complete Home Medications List: Complete Home Medication List: magnesium oxide,aspartate,citr 250 mg PO DAILY PRN cap 08/21/20 prenat.vits,karen,chp-[id number]-jzxrk 1 tab PO DAILY 08/21/20 ferrous sulfate 325 mg (65 mg iron) tablet,delayed release 325 mg PO DAILY #30 tab 01/12/21 Labetalol HCl [Trandate] 200 mg PO BID #60 tab 03/08/21
[2021-03-08 13:12] VITALS: BP 136/72
== END 2021-03-08 12:45 | disposition home or self-care (01) | DRG 776 ==
LOC: ER 17:53 → MS 20:16
PROVIDERS: ADMIT Obstetrics & Gynecology; ATTEND Obstetrics & Gynecology
DX: O98.53 Other viral diseases complicating the puerperium; U07.1 COVID-19; O14.15 Severe pre-eclampsia, complicating the puerperium; R51.9 Headache, unspecified